=== PATIENT | female | born 1965 ===

== ENCOUNTER → 2022-11-28 10:50 | Outpatient (CLI) | payer MEDICAID, SELFPAY ==
--- NOTE | ~2022-11-28 | MR_ITS ---
MRI of the left knee Clinical history: Pain Technique: Coronal proton density and proton density-weighted images, sagittal proton-density and T2 fat-sat images, and axial proton-density fat-saturated images were acquired. Findings: Anterior and posterior cruciate ligaments are intact. Medial collateral ligament is intact, mild thickening and increased signal proximally. Lateral collateral ligament complex is intact. Ther e is mild thickening and increased signal of the proximal fibular collateral ligament. Popliteus tend on is intact. There is vertical tear of the posterior horn of the medial meniscus, with possible superimposed horiz ontal tear in the posterior horn/body. No lateral meniscal tear evident. There is high-grade chondromalacia along the central aspect of the medial femoral condyle. Lateral co mpartment cartilage is well preserved. There is extensive high-grade chondral malacia patella. There is high-grade chondral malacia along the medial femoral trochlea. There is presumed postoperative repair of the distal quadriceps tendon, which is somewhat ill-defined and hyperintense, suggestive of postoperative change. No current high-grade tear or rupture clearly evident. Patellar tendon is thickened and mildly hyperintense, though intact. Small joint effusion pr esent. There is probable ruptured Caldwell's cyst, with fluid extending inferiorly along fascial planes. Impression: Complex tearing of the posterior horn and body medial assist, with posterior horn vertical tear and p robable superimposed horizontal tear in the posterior horn and body. 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 Probable post surgical repair of the distal quadriceps tendon. Thickening and increased signal of the quadriceps tendon is likely postoperative in nature. No definite recurrent tear. Additional moderate tendinosis of the patellar tendon, which is also thickened and hyperintense. Reviewed, dictated and finalized at location M. Impression: Complex tearing of the posterior horn and body medial assist, with posterior ho rn vertical tear and probable superimposed horizontal tear in the posterior hor n and body. 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 Probable post surgical repair of the distal quadriceps tendon. Thickening and i ncreased signal of the quadriceps tendon is likely postoperative in nature. No definite recurrent tear. Additional moderate tendinosis of the patellar tendon, which is also thickened and hyperintense.
== END ==
PROVIDERS: PCP Physician Assistant; Visit Provider Physician Assistant
DX: S76.112D Strain of left quadriceps muscle, fascia and tendon, subsequent encounter (principal); S83.232A Complex tear of medial meniscus, current injury, left knee, initial encounter; G89.29 Other chronic pain; M22.42 Chondromalacia patellae, left knee; T14.90XD Injury, unspecified, subsequent encounter
CPT/HCPCS: 73721